=== PATIENT | female | born 1960 | race Asian ===

== ENCOUNTER 2020-01-22 17:43 | Emergency (ER) | payer OTHER ==
[~2020-01-22] VITALS: Ht 154.9 cm; Wt 49.4 kg
[2020-01-22] MEDS ORDERED: Morphine Sulfate 2mg/ml Inj(IV/IM USE ONLY) IVP ONE ×2 (18:00→21:30)
[2020-01-22] MEDS ORDERED: Omnipaque-300 100ml vial INJ PRN (18:00)
--- NOTE | 2020-01-22 18:00 | NUR ---
ED Nurse Note: pt presents to ED c/o abd pain and DE JESUS onset last PM. pt denies any N/V/D, describes the pain as being mostly epigastric and intermittent. pt has never had this pain before, denies any burning with urination or blood in the urine at this time. she is ambulatory with steady gait, AOx4, no acute distress noted at this time
--- NOTE | 2020-01-22 18:03 | Emergency Room Report ---
History of Present Illness General Chief Complaint: Abdominal Pain Source: Patient (Dragan Perez MD) Present Illness HPI Disclaimer: Please note that this report is being documented using [employer] technology. This can lead to erroneous entry secondary to incorrect interpr etation by the dictating instrument. HPI: This 59-year-old female presenting for evaluation of abdominal pain and headache. Symptoms present approximately 1 day. She noted some epigastric and right upper quadrant sharp pain that is nonradiating beginning yesterday afternoon. Relieved somewhat by ibuprofen but returned. She felt subjective fevers but no objective temperature readings. Denies vomiting or diarrhea. Denies dysuria or hematuria. No history of prior abdominal surgeries. Denies flank pain or difficulty urinating. Denies chest pain, shortness of breath, cough. Her headache is generalized. No seizure activity. Denies changes in her vision. Gradual in onset. PMH: Denied PSH: Denied Allergies: Denied Social Hx: Denied (Dragan Perez MD) Allergies: Coded Allergies: No Known Allergies (Unverified , 01/22/20) COVID-19 Screening Contact w/high risk pt: No Experienced COVID-19 symptoms?: No COVID-19 Testing performed PRESSURE CONTROLLER: No (Dragan Perez MD) Nursing Documentation-PMH Past Medical History: No Stated History (Dragan Perez MD) Review of Systems All Other Systems: negative except mentioned in HPI (Dragan Perez MD) Physical Exam Vital Signs Date Time Temp Pulse Resp B/P (MAP) Pulse Ox O2 Delivery O2 Flow Rate FiO2 01/22/20 17:48 98.4 112 18 127/64 (85) 95 Room Air General: Awake and alert, no acute distress HEENT: NC/AT. EOMI. PERRLA. Cardiovascular: Mildly tachycardic. S1 and S2 normal. No murmur appreciated Resp: Normal work of breathing. No cough, wheezing or crackles appreciated Abdomen: Abdomen is soft, nondistended. Tender palpation in the epigastrium and right upper quadrant. Positive Rosenberg's tenderness. Negative tenderness otherwise in the abdomen and no masses are palpable. No rebound. Skin: Intact. No abrasions, laceration or rash over the exposed skin MSK: Normal tone and bulk. Moving all extremities. No obvious deformity. Neuro: Awake and alert. Mentating appropriately. (Dragan Perez MD) Medical Decision Making Diagnostic Impression: Primary Impression: Renal mass Additional Impressions: Uterine myoma UTI (urinary tract infection) ER Course Is a 59-year-old female presenting for evaluation of 1 day abdominal pain. Differential includes was not limited to gastritis, gastroenteritis, pancreatitis, cholecystitis, biliary colic, choledocholithiasis, appendicitis among others. Labs are concerning for an acute urinary tract infection and the patient was treated with ceftriaxone. Chemistry and CBC are within normal limits. No white count. CT scan of the abdomen is concerning for a right-sided renal mass which may represent a malignancy. There are no other metastatic lesions found in the abdomen or pelvis. There were some thickness of the uterine bladder consistent with urinary tract infection. Also myomatous uterus was noted as well as reticulonodular densities in the anterior lungs which may represent infection versus inflammatory process. The patient denies any cough, shortness of breath, fever or other signs of infection. History of ceftriaxone for UTI will continue outpatient oral medication. Renal ultrasound was ordered and is pending at time of signout. She will be signed out to oncoming provider pending completion of ultrasound though anticipate discharge home barring significant findings. Copies of her labs and CT were given to the patient and we discussed the imaging and lab results as well as need for follow-up with nephrology to evaluate this renal mass as soon as possible. This was done through the use of a [place] pole peeling machine operator. Laboratory Tests Test 01/22/20 18:13 01/22/20 18:53 White Blood Count 9.5 K/UL (4.8-10.8) Red Blood Count 3.89 M/UL (4.20-5.40) L Hemoglobin 12.4 G/DL (12.0-16.0) Hematocrit 37.3 % (37.0-47.0) Mean Corpuscular Volume 96 FL (80-99) Mean Corpuscular Hemoglobin 31.9 PG (27.0-31.0) H Mean Corpuscular Hemoglobin Concent 33.3 G/DL (32.0-36.0) Red Cell Distribution Width 11.5 % (11.6-14.8) L Platelet Count 177 K/UL (150-450) Mean Platelet Volume 7.2 FL (6.5-10.1) Neutrophils (%) (Auto) % (45.0-75.0) Lymphocytes (%) (Auto) % (20.0-45.0) Monocytes (%) (Auto) % (1.0-10.0) Eosinophils (%) (Auto) % (0.0-3.0) Basophils (%) (Auto) % (0.0-2.0) Differential Total Cells Counted 100 Neutrophils % (Manual) 91 % (45-75) H Lymphocytes % (Manual) 3 % (20-45) L Monocytes % (Manual) 5 % (1-10) Eosinophils % (Manual) 1 % (0-3) Basophils % (Manual) 0 % (0-2) Band Neutrophils 0 % (0-8) Platelet Estimate Adequate Platelet Morphology Normal Red Blood Cell Morphology Normal Sodium Level 137 MMOL/L (136-145) Potassium Level 3.1 MMOL/L (3.5-5.1) L Chloride Level 101 MMOL/L (98-107) Carbon Dioxide Level 28 MMOL/L (21-32) Anion Gap 8 mmol/L (5-15) Blood Urea Nitrogen 10 mg/dL (7-18) Creatinine 0.8 MG/DL (0.55-1.30) Estimated Glomerular Filtration Rate > 60 mL/min (>60) Glucose Level 206 MG/DL (74-106) H Calcium Level 8.7 MG/DL (8.5-10.1) Total Bilirubin 0.8 MG/DL (0.2-1.0) Aspartate Amino Transferase (AST) 18 U/L (15-37) Alanine Aminotransferase (ALT) 29 U/L (12-78) Alkaline Phosphatase 57 U/L (46-116) Total Protein 7.4 G/DL (6.4-8.2) Albumin 3.5 G/DL (3.4-5.0) Globulin 3.9 g/dL Albumin/Globulin Ratio 0.9 (1.0-2.7) L Lipase 146 U/L (73-393) Urine Color Pale yellow Urine Appearance Clear Urine pH 7 (4.5-8.0) Urine Specific [place] 1.005 (1.005-1.035) Urine Protein Negative (NEGATIVE) Urine Glucose (UA) Negative (NEGATIVE) Urine Ketones Negative (NEGATIVE) Urine Blood 2+ (NEGATIVE) H Urine Nitrite Negative (NEGATIVE) Urine Bilirubin Negative (NEGATIVE) Urine Urobilinogen Normal MG/DL (0.0-1.0) Urine Leukocyte Esterase 1+ (NEGATIVE) H Urine RBC 15-20 /HPF (0 - 2) H Urine WBC 5-10 /HPF (0 - 2) H Urine Squamous Epithelial Cells Moderate /LPF (NONE/OCC) H Urine Bacteria Moderate /HPF (NONE) H (Dragan Perez MD) ER Course 59-year-old female here with abdominal pain. Patient remained hemodynamically stable and neurovascularly intact throughout the rest of her stay in the emergency department. She was signed out to me by the previous physician Dr. Perez. Right upper quadrant ultrasound confirmed the 3.6 cm mass concerning for malignancy. However there were no acute findings visible on the ultrasound. Patient was given a printout of her radiology reports as well as antibiotics for her urinary tract infection. She will follow-up with her primary care provider. Discharged in stable condition. (Krish Nath M.D.) CT/MRI/US Diagnostic Results CT/MRI/US Diagnostic Results : Impression IMPRESSION: 1. Mild thickening of the urinary bladder and right ureter may be related to infection. Consider correlation with urinalysis. 2. A 3 cm right renal mass is concerning for malignancy. Recommend urologic consultation. No renal vascular invasion. No evidence of metastatic disease in the abdomen or pelvis. 3. Reticulonodular densities in bilateral anterior lungs are concerning for an infectious or inflammatory process. 4. Myomatous uterus. Dictated By: Madiha Arnold MD Electronically Signed By:Madiha Arnold MD Signed Date/Time01/22/202007 CC: Dragan Perez MD IMPRESSION: 1. A 3.6 cm right renal masses concerning for malignancy. Recommend urologic consultation. 2. No acute findings. Dictated By: Madiha Arnold MD Electronically Signed By:Madiha Arnold MD Signed Date/Time01/22/20 [id number] CC: Dragan Perez MD (Dragan Perez MD) Last Vital Signs Date Time Temp Pulse Resp B/P (MAP) Pulse Ox O2 Delivery O2 Flow Rate FiO2 01/22/20 17:48 98.4 112 18 127/64 (85) 95 Room Air (Dragan Perez MD) Disposition: HOME, SELF-CARE Condition: Stable Scripts Cephalexin* (KEFLEX*) 500 Mg Capsule 500 MG ORAL EVERY 12 HOURS, #14 CAP 0 Refills Prov: Dragan Perez MD 01/22/20 Dragan Perez MD Jan 22, 2020 18:03 Krish Nath M.D. Jan 22, 2020 23:06
[2020-01-22 18:10] VITALS: BP 127/64
[2020-01-22 18:27] LABS: HEMATOCRIT 37.3 % (37.0-47.0); HEMOGLOBIN 12.4 G/DL (12.0-16.0); MEAN CORPUSCULAR VOLUME 96 FL (80-99); PLATELET COUNT 177 K/UL (150-450); RED BLOOD COUNT 3.89 M/UL (4.20-5.40); RED CELL DISTRIBUTION WIDTH 11.5 % (11.6-14.8); WHITE BLOOD COUNT 9.5 K/UL (4.8-10.8)
[2020-01-22 18:37] LABS: ANION GAP 8 mmol/L (5-15); BLOOD UREA NITROGEN 10 mg/dL (7-18); CALCIUM 8.7 MG/DL (8.5-10.1); CARBON DIOXIDE 28 MMOL/L (21-32); CHLORIDE 101 MMOL/L (98-107); CREATININE 0.8 MG/DL (0.55-1.30); POTASSIUM 3.1 MMOL/L (3.5-5.1); SODIUM 137 MMOL/L (136-145)
[2020-01-22 18:43] LABS: ALANINE AMINOTRANSFERASE 29 U/L (12-78); ALBUMIN 3.5 G/DL (3.4-5.0); ALBUMIN/GLOBULIN RATIO 0.9 (1.0-2.7); ALKALINE PHOSPHATASE 57 U/L (46-116); ASPARTATE AMINO TRANSFERASE 18 U/L (15-37); BILIRUBIN,TOTAL 0.8 MG/DL (0.2-1.0)
--- NOTE | 2020-01-22 19:00 | NUR ---
HAND-OFF: Report given to Theresa CORDERO.
--- NOTE | 2020-01-22 19:01 | NUR ---
ED Nurse Note: Report received to take over care of pt. Pt is currently in CT.
[2020-01-22 19:02] LABS: APPEARANCE,URINE CLEAR; BILIRUBIN, URINE NEGATIVE (NEGATIVE); COLOR,URINE PALE YELLOW; GLUCOSE, URINE (UA) NEGATIVE (NEGATIVE); KETONES,URINE NEGATIVE (NEGATIVE); LEUKOCYTE ESTERASE ,URINE 1+ (NEGATIVE); NITRITE,URINE NEGATIVE (NEGATIVE); PH,URINE 7 (4.5-8.0); PROTEIN,URINE NEGATIVE (NEGATIVE); UROBILINOGEN,URINE NORMAL MG/DL (0.0-1.0)
--- NOTE | 2020-01-22 19:13 | NUR ---
ED Nurse Note: pt back from CT in stable condition
--- NOTE | 2020-01-22 19:14 | NUR ---
ED Nurse Note: Pt is AAOx4, no acute distress noted, no c/o pain at this moment.
[2020-01-22] MEDS ORDERED: cefTRIAXone 1 GM in NS 55 ML IVPB ONE (19:30)
--- NOTE | 2020-01-22 20:09 | Diagnostic Imaging Report ---
EXAM: CT Abdomen and Pelvis With Intravenous Contrast CLINICAL HISTORY: ABD PAIN TECHNIQUE: Axial computed tomography images of the abdomen and pelvis with intravenous contrast. CTDI is 3.2 mGy and DLP is 169.5 mGy-cm. One or more of the following dose reduction techniques were used: automated exposure control, adjustment of the mA and/or kV according to patient size, use of iterative reconstruction technique. COMPARISON: No relevant prior studies available. FINDINGS: Lung bases: Reticulonodular densities in bilateral anterior lungs. ABDOMEN: Liver: Subcentimeter focus of hypoattenuation of the liver is too small to characterize. Gallbladder and bile ducts: No significant abnormality. No calcified stones. Pancreas: No significant abnormality. Spleen: No significant abnormality. Adrenals: No significant abnormality. Kidneys and ureters: Heterogeneous solid appearing mass arising from the anterior midpole of the right kidney measures 3 cm. Mild thickening of the right ureter. Subcentimeter foci of hypoattenuation in bilateral kidneys are too small to characterize. Stomach and bowel: No significant abnormality. Bowel is nondilated. PELVIS: Appendix: No findings to suggest acute appendicitis. Bladder: No significant abnormality. Reproductive: Enlarged lobulated uterus, likely fibroids. ABDOMEN and PELVIS: Intraperitoneal space: No significant abnormality. No free air. Bones/joints: No acute fracture or malalignment. Soft tissues: No significant abnormality. Vasculature: Prominent left periuterine vessels. Mild aortic atherosclerosis. No abdominal aortic aneurysm. Lymph nodes: No significant abnormality. IMPRESSION: 1. Mild thickening of the urinary bladder and right ureter may be related to infection. Consider correlation with urinalysis. 2. A 3 cm right renal mass is concerning for malignancy. Recommend urologic consultation. No renal vascular invasion. No evidence of metastatic disease in the abdomen or pelvis. 3. Reticulonodular densities in bilateral anterior lungs are concerning for an infectious or inflammatory process. 4. Myomatous uterus.
--- NOTE | 2020-01-22 20:38 | NUR ---
ED Nurse Note: electromechanical technician at bedside performing cxr
--- NOTE | 2020-01-22 21:19 | Diagnostic Imaging Report ---
EXAM: XR Chest, 1 View CLINICAL HISTORY: COUGH TECHNIQUE: Frontal view of the chest. COMPARISON: No relevant prior studies available. FINDINGS: Lungs: No significant abnormality. No consolidation. Pleural space: No significant pleural effusions. No pneumothorax. Heart: No significant abnormality. No cardiomegaly. Mediastinum: No significant abnormality. Bones/joints: No acute osseous abnormality. IMPRESSION: No consolidation, significant pleural effusions, or pneumothorax. Reticulonodular densities in bilateral anterior lungs on accompanying CT are not well seen.
[2020-01-22] MEDS ORDERED: CEPHALEXIN500 MG ORAL (21:43)
--- NOTE | 2020-01-22 21:50 | NUR ---
US tech at bedside
[2020-01-22 22:21] VITALS: BP 119/73
--- NOTE | 2020-01-22 23:05 | Diagnostic Imaging Report ---
EXAM: US Abdomen Complete CLINICAL HISTORY: MASS TECHNIQUE: Real-time ultrasound of the abdomen with image documentation. COMPARISON: CT 01/22/20 FINDINGS: Liver: No significant abnormality. No mass. No intrahepatic bile duct dilation. Gallbladder: No significant abnormality. No gallstones. Common bile duct: Unremarkable as visualized. No stones. No dilation. Pancreas: Unremarkable as visualized. Kidneys: Heterogeneous solid appearing mass with internal vascular flow arising from the anterior right kidney measures 3.6 cm. No stones. No hydronephrosis. Spleen: No significant abnormality. No splenomegaly. Aorta: No significant abnormality. No aneurysm. Inferior vena cava: No significant abnormality. IMPRESSION: 1. A 3.6 cm right renal masses concerning for malignancy. Recommend urologic consultation. 2. No acute findings.
[2020-01-22 23:20] VITALS: BP 118/78
--- NOTE | 2020-01-22 23:20 | NUR ---
ER DISCHARGE NOTE: Patient is cleared to be discharged per ERMD, pt is aox4, on room air, with stable vital signs. [place] transater Lizy ID [id number] used for discahrge instructions, copies of diagnostic studies and lab work given to pt, paper prescription given, f/u with PMD and urologist for diagnostic findings. Per interpretor pt understands intructinos. pt id band and iv site removed without complications. pt is able to ambulate with steady gait. pt took all belongings.
== END 2020-01-22 23:20 | disposition home or self-care (01) ==
LOC: EMR 18:00
DX: N28.9 Disorder of kidney and ureter, unspecified (principal); D25.9 Leiomyoma of uterus, unspecified; N39.0 Urinary tract infection, site not specified; R00.0 Tachycardia, unspecified
CPT/HCPCS: 36415; 71045; 74177; 76700; 80053; 81003; 83690; 85007; 85025; 87086; 87181; 96361; 96365; 96375; 96376; 99284; J0696; J2270; J7030; Q9965